=== PATIENT | female | born 1960 | race Caucasian/White ===

== ENCOUNTER 2021-10-21 15:41 | Emergency (ER) | payer OTHER ==
[2021-10-21 16:30] VITALS: BP 187/105; PULSE 113
[2021-10-21] MEDS ORDERED: Sodium Chloride 0.9% 10 ML Syringe FLUSH PRN (16:35)
[2021-10-21 17:40] LABS: CORONAVIRUS COVID-19 NAA NEGATIVE (NEGATIVE)
[2021-10-21] MEDS ORDERED: Iopamidol 755 Mg/ML 100 ML Bottle IVPUSH ONE (18:37)
[2021-10-21] MEDS ORDERED: Sodium Chloride 0.9% 10 ML Syringe FLUSH ONE (18:37)
[2021-10-21] MEDS ORDERED: Sodium Chloride 0.9% 100 ML IV SCH (18:45)
== END 2021-10-21 19:12 | disposition home or self-care (01) ==
LOC: JD.ED 15:41
DX: R07.89 Other chest pain (principal); E78.00 Pure hypercholesterolemia, unspecified; I10 Essential (primary) hypertension; K21.9 Gastro-esophageal reflux disease without esophagitis; E11.9 Type 2 diabetes mellitus without complications; E66.9 Obesity, unspecified; Z68.38 Body mass index [BMI] 38.0-38.9, adult; Z88.8 Allergy status to other drugs, medicaments and biological substances; Z79.84 Long term (current) use of oral hypoglycemic drugs; Z20.822 Contact with and (suspected) exposure to COVID-19
CPT/HCPCS: 0241U; 36415; 71045; 71045-26; 71275; 71275-26; 80053; 81001; 83735; 83880; 84484; 85025; 85379; 87086; 87088; 87186; 93005; 93225; 93226; 99285-25; J3490; Q9967

== ENCOUNTER 2023-03-07 10:38 | Inpatient (IN) | payer BC ==
[2023-03-07] MEDS ORDERED: Aspirin 81 MG Tab.Chew PO ONE (10:59)
[2023-03-07] MEDS ORDERED: Sodium Chloride 0.9% 10 ML Syringe FLUSH PRN (10:59)
[2023-03-07 11:04] LABS: BASOPHILS PERCENT AUTO 0.2 % (0.0-1.0); EOSINOPHILS ABSOLUTE AUTO 0.1 K/mm3 (0.0-0.4); EOSINOPHILS PERCENT AUTO 0.6 % (0.0-6.0); HEMATOCRIT 42.2 % (37.0-47.0); HEMOGLOBIN 13.9 gm/dl (12.0-16.0); IMMATURE GRAN ABSOLUTE AUTO 0.02 K/mm3 (0.00-0.05); IMMATURE GRAN PERCENT AUTO 0.2 % (0.0-0.4); LYMPHOCYTES ABSOLUTE AUTO 2.4 K/mm3 (1.0-4.8); MEAN CORPUSCULAR HEMOGLOBIN 30.2 pg (28.0-32.0); MEAN CORPUSCULAR HGB CONC 32.9 g/dl (32.0-36.0); MEAN CORPUSCULAR VOLUME 91.7 fl (83.0-99.0); MEAN PLATELET VOLUME 8.7 fl (9.4-12.3); MONOCYTES ABSOLUTE AUTO 0.5 K/mm3 (0.0-0.8); MONOCYTES PERCENT AUTO 5.8 % (0.0-8.0); NEUTROPHILS ABSOLUTE AUTO 5.3 K/mm3 (1.8-7.7); NEUTROPHILS PERCENT AUTO 64.2 % (41.0-71.0); PLATELET COUNT,PLT 225 K/mm3 (150-400); WHITE BLOOD CELL COUNT,WBC 8.27 K/mm3 (3.9-11.3)
[2023-03-07 11:21] LABS: INR 1.08; PROTHROMBIN TIME 11.5 SECONDS (9.7-12.0)
[2023-03-07] MEDS ORDERED: Diltiazem 25 MG/5 ML SDV IVPUSH ONE (11:23)
[2023-03-07 11:25] LABS: A/G RATIO 0.7 (1-2); ALBUMIN 3.6 g/dl (3.4-5.0); ANION GAP 15.1 (5-15); BILIRUBIN TOTAL 0.8 mg/dL (0.2-1.0); CALCIUM 9.6 mg/dL (8.5-10.1); EST CRCL DRUG DOSING (CG) 47.01 mL/min; MAGNESIUM 1.6 mg/dL (1.8-2.4); PROTEIN TOTAL,TP 8.7 g/dl (6.4-8.2)
[2023-03-07 11:27] LABS: D-DIMER QUANTITATIVE 1.44 mg/L (0.19-0.50)
[2023-03-07] MEDS ORDERED: Lactated Ringers 1,000 ML IV SCH (11:30)
[2023-03-07] MEDS ORDERED: Iopamidol 755 Mg/ML 100 ML Bottle IVPUSH ONE (11:37)
[2023-03-07] MEDS ORDERED: Sodium Chloride 0.9% 100 ML IV SCH (11:45)
[2023-03-07 11:46] LABS: POTASSIUM,K 4.1 mEq/L (3.5-5.1)
[2023-03-07] MEDS: Diltiazem 125 MG in Sodium Chloride 0.9% 100 ML IV SCH ×2 (12:59→22:11)
[2023-03-07] MEDS ORDERED: Docusate Sodium 100 MG Cap PO PRN (15:56)
[2023-03-07] MEDS ORDERED: Ondansetron 4 MG/2 ML SDV IV PRN (15:56)
[2023-03-07] MEDS ORDERED: Morphine 2 MG/ML SYRINGE IVPUSH PRN (15:56)
[2023-03-07] MEDS ORDERED: Acetaminophen 325 MG Tab PO PRN (15:56)
[2023-03-07] MEDS ORDERED: Magnesium Sulfate/Water 2 GM in Premix Bag 1 BAG IV ONE (16:02)
[2023-03-07] MEDS: Metoprolol Tartrate 25 MG Tab PO SCH (16:55)
[2023-03-07] MEDS: Insulin Lispro 100 Unit/ML 3 ML KwikPen SUBCUT SCH ×2 (17:23→20:38)
[2023-03-07] MEDS: Apixaban 5 MG Tab PO SCH (20:37)
[2023-03-08] MEDS: Metoprolol Tartrate 25 MG Tab PO SCH (00:02)
[2023-03-08 05:29] LABS: BASOPHILS PERCENT AUTO 0.4 % (0.0-1.0); EOSINOPHILS PERCENT AUTO 0.2 % (0.0-6.0); HEMATOCRIT 37.9 % (37.0-47.0); HEMOGLOBIN 12.2 gm/dl (12.0-16.0); IMMATURE GRAN ABSOLUTE AUTO 0.04 K/mm3 (0.00-0.05); IMMATURE GRAN PERCENT AUTO 0.5 % (0.0-0.4); LYMPHOCYTES ABSOLUTE AUTO 1.6 K/mm3 (1.0-4.8); LYMPHOCYTES PERCENT AUTO 19.7 % (24.0-44.0); MEAN CORPUSCULAR HEMOGLOBIN 29.5 pg (28.0-32.0); MEAN CORPUSCULAR HGB CONC 32.2 g/dl (32.0-36.0); MEAN CORPUSCULAR VOLUME 91.5 fl (83.0-99.0); MEAN PLATELET VOLUME 9.3 fl (9.4-12.3); MONOCYTES ABSOLUTE AUTO 0.5 K/mm3 (0.0-0.8); MONOCYTES PERCENT AUTO 6.5 % (0.0-8.0); NEUTROPHILS ABSOLUTE AUTO 5.9 K/mm3 (1.8-7.7); NEUTROPHILS PERCENT AUTO 72.7 % (41.0-71.0); PLATELET COUNT,PLT 208 K/mm3 (150-400); RED BLOOD CELL COUNT 4.14 M/mm3 (4.10-5.30); WHITE BLOOD CELL COUNT,WBC 8.14 K/mm3 (3.9-11.3)
[2023-03-08 05:36] LABS: A/G RATIO 0.7 (1-2); BILIRUBIN TOTAL 0.8 mg/dL (0.2-1.0); BUN/CREATININE RATIO 18.8 (14-18); CALCIUM 8.9 mg/dL (8.5-10.1); CREATININE 0.8 mg/dL (0.55-1.02); EST CRCL DRUG DOSING (CG) 58.77 mL/min; PROTEIN TOTAL,TP 7.4 g/dl (6.4-8.2)
[2023-03-08] MEDS: Insulin Lispro 100 Unit/ML 3 ML KwikPen SUBCUT SCH ×4 (06:39→21:05)
[2023-03-08] MEDS ORDERED: Furosemide 20 MG/2 ML VIAL IVPUSH ONE (07:58)
[2023-03-08] MEDS: Apixaban 5 MG Tab PO SCH ×2 (08:10→21:02)
[2023-03-08] MEDS: Famotidine 20 MG Tab PO SCH (08:10)
[2023-03-08] MEDS ORDERED: Metoprolol Succinate 50 MG Tab.ER PO SCH ×2 (09:00)
[2023-03-08] MEDS ORDERED: Metoprolol Succinate 50 MG Tab.ER PO ONE (11:30)
[2023-03-08] MEDS ORDERED: Diltiazem IR 60 MG Tab PO SCH (14:00)
[2023-03-08] MEDS ORDERED: Diltiazem IR 30 MG Tab PO ONE (15:18)
[2023-03-08] MEDS: Diltiazem IR 30 MG Tab PO SCH (21:02)
[2023-03-09 05:33] LABS: ANION GAP 14.3 (5-15); CALCIUM 9.3 mg/dL (8.5-10.1); EST CRCL DRUG DOSING (CG) 47.01 mL/min; MAGNESIUM 1.8 mg/dL (1.8-2.4)
[2023-03-09 05:59] LABS: POTASSIUM,K 4.3 mEq/L (3.5-5.1)
[2023-03-09] MEDS: Diltiazem IR 30 MG Tab PO SCH (06:48)
[2023-03-09] MEDS: Insulin Lispro 100 Unit/ML 3 ML KwikPen SUBCUT SCH (07:24)
[2023-03-09] MEDS: Famotidine 20 MG Tab PO SCH ×2 (07:28→08:15)
[2023-03-09] MEDS: Apixaban 5 MG Tab PO SCH ×2 (07:28→08:15)
[2023-03-09] MEDS: Metoprolol Succinate 50 MG Tab.ER PO SCH ×2 (07:29→08:15)
[2023-03-09] MEDS ORDERED: Diltiazem 180 MG Cap.CD PO SCH (09:00)
[2023-03-09 10:48] VITALS: BP 114/74; PULSE 79
== END 2023-03-09 10:22 | disposition home or self-care (01) | DRG 201 ==
LOC: JD.ED 10:38 → JD.ICU 14:21
PROVIDERS: ADMIT Internal Medicine; ATTEND Internal Medicine
DX: I48.91 Unspecified atrial fibrillation (principal); I47.10 Supraventricular tachycardia, unspecified; E11.69 Type 2 diabetes mellitus with other specified complication; E66.01 Morbid (severe) obesity due to excess calories; I10 Essential (primary) hypertension; K21.9 Gastro-esophageal reflux disease without esophagitis; I25.10 Atherosclerotic heart disease of native coronary artery without angina pectoris; E83.42 Hypomagnesemia; G47.33 Obstructive sleep apnea (adult) (pediatric); E78.2 Mixed hyperlipidemia; R60.0 Localized edema; M15.9 Polyosteoarthritis, unspecified; I08.3 Combined rheumatic disorders of mitral, aortic and tricuspid valves; Z88.8 Allergy status to other drugs, medicaments and biological substances; Z79.01 Long term (current) use of anticoagulants; Z79.84 Long term (current) use of oral hypoglycemic drugs; Z79.899 Other long term (current) drug therapy; Z68.41 Body mass index [BMI] 40.0-44.9, adult; Z98.49 Cataract extraction status, unspecified eye; Z90.49 Acquired absence of other specified parts of digestive tract; Z98.51 Tubal ligation status; Z98.890 Other specified postprocedural states; Z79.4 Long term (current) use of insulin
CPT/HCPCS: 36415; 71045; 71045-26; 71275; 71275-26; 80048; 80053; 82947; 83735; 83880; 84443; 84484; 85025; 85379; 85610; 93005; 93010; 93307; 94660; 99285; A9270-GY; J1815; J1940; J2270; J3475; J3490; J7120; Q9967